=== PATIENT | female | born 1980 | race Caucasian/White ===

== ENCOUNTER 2019-06-24 22:51 | Emergency (ER) | payer MEDICAID, OTHER ==
[~2019-06-24] VITALS: Ht 154.9 cm; Wt 76.1 kg
[~2019-06-24 22:51] MED LIST: FAMO-96 PO; IBUP800T48 PO; ONDA4TAB8 PO
[2019-06-24 23:00] VITALS: Ht 154.9 cm; Wt 76.1 kg
[2019-06-25] MEDS ORDERED: FAMOTIDINE 20 MG TAB PO STA (01:40)
[2019-06-25] MEDS ORDERED: ONDANSETRON 4 MG INJ IV STA (01:40)
[2019-06-25] MEDS ORDERED: SOD CHLORIDE 0.9% 1,000 ML IV STA (01:40)
[2019-06-25] MEDS ORDERED: morphine 4 MG/ML VIAL IV STA (01:40)
[2019-06-25 03:58] VITALS: BP 113/68; PULSE 77; RESP 17
== END 2019-06-25 04:00 | disposition home or self-care (01) ==
LOC: FTE 22:51
DX: K80.20 Calculus of gallbladder without cholecystitis without obstruction (principal)
CPT/HCPCS: 36415; 76705; 80053; 81001; 83690; 85025; 96361; 96374; 96375; J2270; J2405; J7030; Z7502; Z7610